=== PATIENT | male | born 1970 | race Caucasian/White ===

== ENCOUNTER 2022-10-03 10:40 | Emergency (ER) | payer OTHER, SELFPAY ==
--- NOTE | ~2022-10-03 | CT_ITS ---
EXAMINATION: CT abdomen pelvis w con DATE: 10/03/2022 13:08 INDICATION: Left lower quadrant abdominal pain for 6 days. History of prior diverticulitis with bowel resection. TECHNIQUE: Computed tomography (CT) of the abdomen and pelvis was performed with 100 CC Omnipaque 350 intravenous contrast. Automated exposure control and iterative reconstruction technique were employe d. Exam dose: 1370.79 mGy-cm total exam DLP. COMPARISON: 07/04/2014 CT abdomen pelvis FINDINGS: There is minimal discoid atelectasis or scarring in both dependent lower lobes. Lung bases are clear of infiltrate or consolidation. Normal heart size. No pericardial or pleural effusion. There is an approximately 3 cm inferior right hepatic lobe hypoattenuating lesion with peripheral int errupted contrast enhancement, most consistent with benign hemangioma. The liver is otherwise unremar kable. Cholelithiasis is noted, with up to 2.2 cm concentrically calcified gallstone. No gallbladder wall th ickening or pericholecystic fluid or fat stranding is noted. No bile duct or pancreatic duct dilatation. No pancreatic mass lesion or calcification. Normal spleni c size. Normal morphology of the adrenal glands. No renal mass lesion or urinary tract calculus or hydroureteronephrosis. The urinary bladder and pros jang gland are unremarkable. Normal appendix. Status post distal sigmoid colon resection. There is diverticulosis of left and right colon, most num erous in the sigmoid region. No CT evidence of diverticulitis. No bowel wall thickening, pneumatosis or intraperitoneal free air. There are scattered small bowel ai r-fluid levels without abnormal dilatation or wall thickening or loss of wall enhancement. Normal att enuation of the mesenteric fat. There is atherosclerotic calcification but normal caliber of the abdominal aorta. No intraperitoneal or retroperitoneal or pelvic mass lesion or adenopathy or ascites. Bilateral small fat-containing inguinal hernias. No suspicious osteolytic or osteoblastic lesions. IMPRESSION: Status post distal sigmoid colon resection; history of surgery for diverticulitis Diverticulosis of the colon; no CT evidence of diverticulitis at this time Scattered small bowel air-fluid levels without abnormal dilatation or wall thickening, suggesting ent eritis or mild nonspecific adynamic ileus Normal appendix Benign 3 cm hemangioma at inferior aspect of right hepatic lobe Cholelithiasis; no gallbladder wall thickening or bile duct dilatation Reviewed, dictated and finalized at [facility]. Reviewed, dictated and finalized at [facility]. 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
[2022-10-03 11:11] VITALS: BP 147/100; PULSE 79; RESP 18; TEMP 36.9; O2SAT 99
[2022-10-03 11:28] LABS: Basophils Absolute Auto 0.1 K/mm3 (0.0-0.1); Basophils Percent Auto 1.2 % (0.2-1.2); Eosinophils Absolute Auto 0.1 K/mm3 (0-0.3); Eosinophils Percent Auto 1.6 % (0-4.4); Hematocrit 50.2 % (42.0-52.0); Hemoglobin 16.9 g/dL (14.0-18.0); Immature Granulocyte Absolute 0.02 K/mm3 (0.00-0.031); Immature Granulocyte Percent A 0.3 % (0-0.5); Lymphocytes Absolute Auto 2.38 K/mm3 (0.9-3.2); Lymphocytes Percent Auto 32.3 % (18.3-44.2); Mean Corpuscular HGB Conc 33.7 g/dl (32-36); Mean Corpuscular Hemoglobin 30.7 pg (26-34); Mean Corpuscular Volume 91.1 fl (80-100); Mean Platelet Volume 8.9 fl (7.4-10.4); Monocytes Absolute Auto 0.5 K/mm3 (0.1-0.6); Monocytes Percent Auto 6.1 % (2.6-8.5); Neutrophils Absolute Auto 4.3 K/mm3 (1.3-6.7); Neutrophils Percent Auto 58.5 % (45.5-73.1); Platelet Count Result 309 k/mm3 (150-375); Red Blood Count 5.51 M/mm3 (4.6-6.20); Red Cell Distribution Width 12.6 % (11.5-14.5); White Blood Count 7.4 K/mm3 (4.5-10.0)
[2022-10-03 11:38] LABS: Alanine Aminotransferase 21 U/L (6-50); Albumin Level 4.7 g/dL (3.5-5.1); Alkaline Phosphatase 70 U/L (38-126); Anion Gap 6 mmol/L (8-16); Aspartate Amino Transferase 24 U/L (17-59); Bilirubin,Total 0.6 mg/dL (0.2-1.3); Blood Urea Nitrogen 7 mg/dL (9-20); Carbon Dioxide 27 mmol/L (22-30); Chloride 102 mmol/L (98-107); Estimated CRCL calculation 106 ml/min; Estimated Glomerular Filt Rate > 60; Glucose 104 mg/dL (65-110); Lipase 83 U/L (23-300); Potassium 4.3 mmol/L (3.4-5.0); Sodium 135 mmol/L (137-145)
--- NOTE | 2022-10-03 12:13 | ED.ABDPAIN ---
HPI - Abdominal Pain General Chief Complaint: Abdominal Pain Stated Complaint: abd pain Time Seen by Provider: 10/03/22 12:03 History of Present Illness HPI narrative: 51-year-old male with history of diverticulitis with bowel resection in 2009 presenting the emergency department for evaluation of left lower quadrant pain has been ongoing since Thursday 09/27. Patient states the pain started gradually and over the last few days has increased. Patient states he has not had any blood in the stools. Patient denies any associated nausea vomiting. Patient states he has had decreased appetite. Patient was concerned because the pain has been worsening. In 2009 patient had to have a colon resection due to a microperforation. Patient reports that the surgery occurred here. Related Data Home Medications Medication Instructions Recorded Confirmed duloxetine 60 mg capsule,delayed mg PO 10/03/22 release lisinopril 5 mg tablet mg 10/03/22 metoprolol succinate 25 mg mg PO 10/03/22 tablet,extended release 24 hr Allergies Allergy/AdvReac Type Severity Reaction Status Date / Time polyethylene glycol AdvReac Nausea and Verified 10/03/22 12:07 [From Golytely] Vomiting polyethylene glycol 3350 AdvReac Nausea and Verified 10/03/22 12:07 [From Golytely] Vomiting potassium chloride AdvReac Nausea and Verified 10/03/22 12:07 [From Golytely] Vomiting sodium [From Golytely] AdvReac Nausea and Verified 10/03/22 12:07 Vomiting sodium bicarbonate AdvReac Nausea and Verified 10/03/22 12:07 [From Golytely] Vomiting sodium chloride AdvReac Nausea and Verified 10/03/22 12:07 [From Golytely] Vomiting sodium sulfate AdvReac Nausea and Verified 10/03/22 12:07 [From Golytely] Vomiting Review of Systems Review of Systems: CONSTITUTIONAL: Denies fever, chills, or sweats. EYES: Denies visual changes, redness, or discharge. ENT: Denies rhinorrhea, congestion, sore throat, or otalgia. CARDIOVASCULAR: Denies chest pain, palpitations, or edema. RESPIRATORY: Denies cough or dyspnea. GASTROINTESTINAL: See HPI GENITOURINARY: Denies dysuria or hematuria. SKIN: Denies rash or itching. MUSCULOSKELETAL: Denies back pain, joint pain, or myalgia. NEUROLOGIC: Denies headache, numbness, or weakness. PMFSH Family History Family History (Updated 06/26/14 @ 07:13 by DOCTOR UNKNOWN) Father Depression Mother Depression Social History Social History Smoking status: Current every day smoker Alcohol intake: never Exam Narrative: APPEARANCE: Well appearing, no pain, no distress, well-nourished. HEAD: normocephalic, atraumatic. EYES: PERRLA/EOMI, conjunctivae clear. NOSE: Normal no drainage NECK: Supple. No adenopathy, no masses. RESPIRATORY: Airway patent, respirations nonlabored. Clear to auscultation bilaterally, no rales, rhonchi, wheezing. CARDIOVASCULAR: Regular rate and rhythm without murmurs rubs or gallops. ABDOMINAL: Left lower quadrant tenderness to palpation. No rebound. No peritonitis. No CVA tenderness. MUSCULOSKELETAL: Moves all extremities. Strength/ROM intact, No edema, No calf tenderness. NEURO: Alert. Cranial nerves II through XII intact. Grossly intact SKIN: Warm, dry. Normal Color Course Course Emergency Course: Patient is afebrile with no leukocytosis. Patient's pain was improved with treatment. Patient's CMP is within normal limits. Patient's UA shows no evidence of urinary tract infection. CT did show evidence of diverticulitis with no evidence of abscess or perforation. Patient was started on Augmentin in the emergency department and was also discharged on Augmentin with [place]. All question concerns were addressed. Patient was comfortable with discharge and close follow-up. Patient does have follow-up with GI pending. Vital Signs Vital signs: Vital Signs Temperature 98.5 F 10/03/22 11:11 Pulse Rate 79 10/03/22 11:11 Respiratory Rate 18 10/03/22 11:11 Blood Pr
[2022-10-03] MEDS: ONDANSETRON INJ 4 MG/2 ML VIAL IV PUSH (12:23)
[2022-10-03] MEDS: HYDROmorphone HCL INJ (*CRX) 1 MG/ML SYR IV PUSH (12:23)
[2022-10-03] MEDS: SODIUM CHLORIDE 0.9% IV 1,000 ML 999 ML IV CONT (12:23)
[2022-10-03 12:41] LABS: Appearance Urine Clear (Clear); Bilirubin Urine Negative (Negative); Blood Urine Negative (Negative); Color Urine Yellow (Yellow); Glucose Urine UA Negative (Negative); Ketones Urine Negative (Negative); Leukocyte Esterase Ur Negative LEU/UL (Negative); Nitrate Urine Negative (Negative); Protein Urine Negative (Negative); Urobilinogen Urine 0.2 mg/dL (<2.0)
[2022-10-03 12:46] LABS: Add Urine Microscopic? NO
[2022-10-03] MEDS: AMOXICILLIN/CLAVULANATE K 875-125 MG TAB 1 TABLET PO (14:31)
== END 2022-10-03 14:35 | disposition home or self-care (01) ==
PROVIDERS: Emergency Medicine; Emergency Provider Emergency Medicine
DX: K57.92 Diverticulitis of intestine, part unspecified, without perforation or abscess without bleeding (principal); Z90.49 Acquired absence of other specified parts of digestive tract; F17.200 Nicotine dependence, unspecified, uncomplicated; D18.09 Hemangioma of other sites; K80.20 Calculus of gallbladder without cholecystitis without obstruction
CPT/HCPCS: 36415; 74177; 80053; 81003; 83690; 85025; 96361; 96374; 96375; 99284; A9270; J1170; J2405; J7030; Q9967

== ENCOUNTER 2022-10-28 18:14 | Emergency (ER) | payer OTHER, SELFPAY ==
--- NOTE | ~2022-10-28 | CT_ITS ---
EXAMINATION: CT abdomen pelvis w con DATE: 10/28/2022 20:45 INDICATION: Left lower quadrant abdominal pain. TECHNIQUE: Computed tomography (CT) of the abdomen and pelvis was performed with 100 mL Omnipaque 350 intravenous contrast. Automated exposure control and iterative reconstruction technique were employe d. The dose-length product was 1424.33 mGy-cm. COMPARISON: CT abdomen and pelvis 10/03/2022 FINDINGS: The visualized portions of the lung bases demonstrates mild atelectasis. No pleural effusio n. The heart size is normal. No pericardial effusion. There is a 2.3 cm mass right hepatic lobe with interrupted peripheral puddling of contrast, consistent with a hemangioma. There is a gallstone in th e gallbladder. Gallbladder distention may be secondary to fasting. The spleen, pancreas, adrenal glan ds, and kidneys are normal. There are bilateral inguinal hernias containing fat. There is an anastomo sis in the rectosigmoid. There is diverticulosis of the colon without evidence of diverticulitis. The appendix is normal. There are no pathologically enlarged lymph nodes. There is no free intraperitone al fluid. There is mild thoracolumbar spondylosis. IMPRESSION: 1. Bilateral inguinal hernias containing fat. 2. Cholelithiasis. Reviewed, dictated and finalized at [facility]. 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
[2022-10-28 18:18] VITALS: BP 162/105; PULSE 88; RESP 20; TEMP 36.6; O2SAT 98
[2022-10-28 18:30] LABS: Basophils Absolute Auto 0.1 K/mm3 (0.0-0.1); Basophils Percent Auto 0.8 % (0.2-1.2); Eosinophils Absolute Auto 0.2 K/mm3 (0-0.3); Eosinophils Percent Auto 2.5 % (0-4.4); Hemoglobin 15.3 g/dL (14.0-18.0); Immature Granulocyte Absolute 0.02 K/mm3 (0.00-0.031); Immature Granulocyte Percent A 0.3 % (0-0.5); Lymphocytes Absolute Auto 2.74 K/mm3 (0.9-3.2); Mean Corpuscular Hemoglobin 30.4 pg (26-34); Mean Corpuscular Volume 89.3 fl (80-100); Mean Platelet Volume 8.7 fl (7.4-10.4); Monocytes Absolute Auto 0.6 K/mm3 (0.1-0.6); Monocytes Percent Auto 7.3 % (2.6-8.5); Neutrophils Absolute Auto 4.1 K/mm3 (1.3-6.7); Neutrophils Percent Auto 53.1 % (45.5-73.1); Platelet Count Result 267 k/mm3 (150-375); Red Blood Count 5.04 M/mm3 (4.6-6.20); Red Cell Distribution Width 12.2 % (11.5-14.5); White Blood Count 7.6 K/mm3 (4.5-10.0)
[2022-10-28 18:39] LABS: Alanine Aminotransferase 26 U/L (6-50); Albumin Level 4.4 g/dL (3.5-5.1); Alkaline Phosphatase 62 U/L (38-126); Anion Gap 6 mmol/L (8-16); Aspartate Amino Transferase 36 U/L (17-59); Bilirubin,Total 0.6 mg/dL (0.2-1.3); Blood Urea Nitrogen 12 mg/dL (9-20); Calcium 8.4 mg/dL (8.4-10.2); Carbon Dioxide 27 mmol/L (22-30); Chloride 103 mmol/L (98-107); Estimated CRCL calculation 99 ml/min; Estimated Glomerular Filt Rate > 60; Glucose 99 mg/dL (65-110); Lipase 68 U/L (23-300); Sodium 136 mmol/L (137-145)
--- NOTE | 2022-10-28 20:08 | PC.NURSE ---
Patient states he has been on antibiotic since Monday for diverticulitis and pain has gotten worse. Patient complaints of nausea, but denies diarrhea since Monday
[2022-10-28 20:10] VITALS: BP 142/92; PULSE 85; RESP 18; O2SAT 97
--- NOTE | 2022-10-28 20:15 | ED.ABDPAIN ---
HPI - Abdominal Pain General Chief Complaint: Abdominal Pain Stated Complaint: abd pain Time Seen by Provider: 10/28/22 20:06 Source: patient Mode of arrival: ambulatory Limitations: no limitations History of Present Illness HPI narrative: This is a 51 year old male that presents to the ER for LLQ abdominal pain ongoing over the last 3 days. Reports the pain is constant and sharp. Associated with nausea and diarrhea. Reports history of diverticulitis. Denies fever, vomiting or hematochezia. Related Data Home Medications Medication Instructions Recorded Confirmed duloxetine 60 mg capsule,delayed mg PO 10/03/22 release lisinopril 5 mg tablet mg 10/03/22 metoprolol succinate 25 mg mg PO 10/03/22 tablet,extended release 24 hr Allergies Allergy/AdvReac Type Severity Reaction Status Date / Time polyethylene glycol AdvReac Nausea and Verified 10/28/22 20:19 [From Golytely] Vomiting polyethylene glycol 3350 AdvReac Nausea and Verified 10/28/22 20:19 [From Golytely] Vomiting potassium chloride AdvReac Nausea and Verified 10/28/22 20:19 [From Golytely] Vomiting sodium [From Golytely] AdvReac Nausea and Verified 10/28/22 20:19 Vomiting sodium bicarbonate AdvReac Nausea and Verified 10/28/22 20:19 [From Golytely] Vomiting sodium chloride AdvReac Nausea and Verified 10/28/22 20:19 [From Golytely] Vomiting sodium sulfate AdvReac Nausea and Verified 10/28/22 20:19 [From Golytely] Vomiting Review of Systems Review of Systems: CONSTITUTIONAL: Denies fever GASTROINTESTINAL: Reports abdominal pain, nausea, and diarrhea. Denies vomiting GENITOURINARY: Denies dysuria All systems reviewed & are unremarkable except as noted in HPI and below PMFSH Past Medical History Medical History (Updated 10/28/22 @ 22:00 by Sangeetha Rowland PA-C) History of anxiety History of hypertension Surgical History Surgical History (Updated 10/28/22 @ 20:18 by Sangeetha Rowland PA-C) History of colon resection Family History Family History (Updated 06/26/14 @ 07:13 by DOCTOR UNKNOWN) Father Depression Mother Depression Social History Social History Smoking status: Current every day smoker Alcohol intake: never Exam Narrative: GENERAL: Well-appearing, well-nourished, and in no acute distress. HEAD: Normocephalic, atraumatic. EYES: EOMI. CHEST: Clear to auscultation. No respiratory distress. No wheezes rales or rhonchi HEART: Regular rate and rhythm. No murmur heard. Normal peripheral pulses. ABDOMEN: Soft, nondistended, normal active bowel sounds. Tender to palpation in the left lower quadrant, without guarding EXTREMITIES: Normal range of motion. No edema. SKIN: Warm, dry, no rash. NEURO: No focal deficits. Alert and oriented x3. PSYCH: Normal mood and affect Course Vital Signs Vital signs: Vital Signs Temperature 97.8 F 10/28/22 18:18 Pulse Rate 88 10/28/22 18:18 Respiratory Rate 20 10/28/22 18:18 Blood Pressure 162/105 H 10/28/22 18:18 Pulse Oximetry 98 10/28/22 18:18 Oxygen Delivery Room Air 10/28/22 18:18 Temperature 97.8 F 10/28/22 18:18 Pulse Rate 85 10/28/22 20:10 Respiratory Rate 18 10/28/22 20:10 Blood Pressure 142/92 H 10/28/22 20:10 Pulse Oximetry 97 10/28/22 20:10 Oxygen Delivery Room Air 10/28/22 18:18 MDM - Abdominal Pain MDM Narrative Medical decision making narrative: Patient presents to the ER for LLQ abdominal pain. Ongoing over the last 3 days. Was started on Cipro/Flagyl by his PCP for presumptive diverticulitis. He is afebrile and nontoxic-appearing. His vitals are stable. CBC without leukocytosis. Metabolic panel and lipase without concerning findings. UA without evidence of infection. CT scan abdomen and pelvis is without acute findings. Patient was updated on work-up. Could be having diverticulitis flare that was partially treated with antibiotics, he also reports he has been doing bowel rest
[2022-10-28 20:16] LABS: Add Urine Microscopic? YES; Appearance Urine Clear (Clear); Bilirubin Urine Negative (Negative); Blood Urine Trace-Intact (Negative); Color Urine Yellow (Yellow); Glucose Urine UA Negative (Negative); Ketones Urine Negative (Negative); Leukocyte Esterase Ur Negative LEU/UL (Negative); Nitrate Urine Negative (Negative); Protein Urine Negative (Negative); Urobilinogen Urine 0.2 mg/dL (<2.0); pH Urine 5.5 (5.0-9.0)
[2022-10-28] MEDS: ONDANSETRON INJ 4 MG/2 ML VIAL IV PUSH (20:23)
[2022-10-28] MEDS: MORPHINE SULFATE (*CRX) 4 MG/ML INJ IV PUSH (20:24)
[2022-10-28 20:25] LABS: Mucus Urine Rare /lpf; RBC Urine 0-2 /hpf (0-2); Squamous Epithelial Cell Urine Rare /hpf (Few); WBC Urine 0-3 /hpf
== END 2022-10-28 22:11 | disposition home or self-care (01) ==
PROVIDERS: Emergency Medicine; Emergency Provider Physician Assistant
DX: R10.32 Left lower quadrant pain (principal); I10 Essential (primary) hypertension; Z90.49 Acquired absence of other specified parts of digestive tract; F17.200 Nicotine dependence, unspecified, uncomplicated; K40.20 Bilateral inguinal hernia, without obstruction or gangrene, not specified as recurrent; K80.20 Calculus of gallbladder without cholecystitis without obstruction
CPT/HCPCS: 36415; 74177; 80053; 81001; 83690; 85025; 96365; 96375; 99284; J0131; J2270; J2405; Q9967

== ENCOUNTER 2023-11-13 10:35 | Emergency (ER) | payer OTHER, SELFPAY ==
--- NOTE | ~2023-11-13 | CT_ITS ---
EXAMINATION: CT cervical spine wo con DATE: 11/13/2023 12:02 INDICATION: Neck pain TECHNIQUE: Computed tomography (CT) of the cervical spine was performed without intravenous contrast. Automated exposure control and iterative reconstruction technique were employed. The dose-length pro duct was 607.26 mGy-cm. COMPARISON: Cervical spine CT dated 10/19/2017 FINDINGS: Alignment is normal. Unchanged mild chronic T2 compression fracture with <20% anterior vertebral body height loss. Cervical vertebral body heights are normal. No acute fracture. Interval progression of now moderate disc height loss with degenerative endplate changes and severe bilateral uncovertebral o steoarthritis at C5-C6 and C6-C7. Mild disc height loss at C4-C5 and C7-T1. Moderate facet osteoarthr itis on the left at C2-C3 with mild facet osteoarthritis at the remaining bilateral cervical neural f oramina. Small disc bulge at C4-C5 and posterior disc osteophyte complexes resulting in mild central canal stenosis at C5-C6, C6-C7 and C7-T1. Moderate neural foraminal stenosis on the left at C5-C6 and bilaterally at C6-C7 with mild neural from stenosis on the right at C4-C5. Cervical soft tissues are unremarkable. Mild biapical pleural-parenchymal scarring. IMPRESSION: 1. Interval progression of to moderate cervical spondylosis. No acute osseous abnormality. 2. Chronic mild T2 compression fracture. Reviewed, dictated and finalized at [facility]. 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 Interval progression of to moderate cervical spondylosis. No acute osseous a bnormality. 2. Chronic mild T2 compression fracture.
[2023-11-13 10:37] VITALS: BP 158/102; PULSE 100; RESP 18; TEMP 36.6; O2SAT 100
--- NOTE | 2023-11-13 11:53 | ED.BACK ---
HPI - Back Pain/Injury General Chief Complaint: Back Pain/Injury Stated Complaint: neck pain Time Seen by Provider: 11/13/23 11:25 52-year-old male presented to the emergency department for evaluation of left-sided shoulder left lateral neck pain. Patient states the symptoms started a few weeks ago. Patient did have follow-up with primary care physician and was started on Flexeril and a 5 day course of steroid. Patient states the symptoms have been persistent. Patient states he does have intermittent tingling down the left arm. Patient denies any falls or injuries but states that the symptoms started when he woke up. Related Data Home Medications Medication Instructions Recorded Confirmed duloxetine 60 mg capsule,delayed mg PO 10/03/22 release lisinopril 5 mg tablet mg 10/03/22 metoprolol succinate 25 mg mg PO 10/03/22 tablet,extended release 24 hr Allergies Allergy/AdvReac Type Severity Reaction Status Date / Time polyethylene glycol AdvReac Nausea and Verified 11/13/23 11:09 [From Golytely] Vomiting polyethylene glycol 3350 AdvReac Nausea and Verified 11/13/23 11:09 [From Golytely] Vomiting potassium chloride AdvReac Nausea and Verified 11/13/23 11:09 [From Golytely] Vomiting sodium [From Golytely] AdvReac Nausea and Verified 11/13/23 11:09 Vomiting sodium bicarbonate AdvReac Nausea and Verified 11/13/23 11:09 [From Golytely] Vomiting sodium chloride AdvReac Nausea and Verified 11/13/23 11:09 [From Golytely] Vomiting sodium sulfate AdvReac Nausea and Verified 11/13/23 11:09 [From Golytely] Vomiting Review of Systems Review of Systems: All systems reviewed & are unremarkable except as noted in HPI and below PMFSH Past Medical History Medical History (Updated 11/14/23 @ 00:00 by Background Daedie) History of anxiety History of hypertension Surgical History Surgical History (Updated 10/28/22 @ 20:18 by Sangeetha Rowland PA-C) History of colon resection Family History Family History (Updated 06/26/14 @ 07:13 by DOCTOR UNKNOWN) Father Depression Mother Depression Social History Social History Smoking status: Current every day smoker Alcohol intake: never Exam Narrative: APPEARANCE: Well appearing, no pain, no distress, well-nourished. HEAD: normocephalic, atraumatic. EYES: PERRLA/EOMI, conjunctivae clear. NOSE: Normal no drainage EARS:TMS clear with good light reflex. THROAT: Pharynx clear, no exudate. NECK: Supple. No adenopathy, no masses. RESPIRATORY: Airway patent, respirations nonlabored. Clear to auscultation bilaterally, no rales, rhonchi, wheezing. CARDIOVASCULAR: Regular rate and rhythm without murmurs rubs or gallops. ABDOMINAL: Soft, nontender, nondistended, normal bowel sounds MUSCULOSKELETAL: Muscle spasm of left lateral neck and left shoulder NEURO: Alert. Cranial nerves II through XII intact. Grossly intact SKIN: Warm, dry. Normal Color Course Course Emergency Course: 52-year-old male present to the ED for evaluation persistent left shoulder left lateral neck tightness. CT C-spine showed no acute abnormalities. Patient did have some improvement with treatment. Patient will be started on a Medrol Dosepak along with switching his muscle relaxant to Norflex and patient will also be provided some additional narcotic pain medication for pain control. Patient was encouraged of close follow-up with primary care physician was advised that he may need to have an MRI if his symptoms persist. Vital Signs Vital signs: Vital Signs Temperature 97.8 F 11/13/23 10:37 Pulse Rate 100 11/13/23 10:37 Respiratory Rate 18 11/13/23 10:37 Blood Pressure 158/102 H 11/13/23 10:37 Pulse Oximetry 100 11/13/23 10:37 Oxygen Delivery Room Air 11/13/23 10:37 Temperature 97.8 F 11/13/23 10:37 Pulse Rate 100 11/13/23 10:37 Respiratory Rate 18 11/13/23 10:37 Blood Pressure 158/102 H 11/13/23 10:37 Pulse
[2023-11-13] MEDS: ORPHENADRINE CITRATE 100 MG TABLET.ER PO (12:16)
[2023-11-13] MEDS: KETOROLAC 30 MG/ML VIAL (*BKC) IM (12:16)
== END 2023-11-13 13:13 | disposition home or self-care (01) ==
PROVIDERS: Emergency Provider Emergency Medicine
DX: M43.6 Torticollis (principal); M47.22 Other spondylosis with radiculopathy, cervical region; I10 Essential (primary) hypertension; F17.200 Nicotine dependence, unspecified, uncomplicated; Z90.49 Acquired absence of other specified parts of digestive tract; M48.54XA Collapsed vertebra, not elsewhere classified, thoracic region, initial encounter for fracture
CPT/HCPCS: 72125; 96372; 99284; A9270; J1885